=== PATIENT | female | born 1955 | race Two or more races ===

== ENCOUNTER 2024-06-18 18:47 | Emergency (ER) | payer OTHER ==
[2024-06-18 18:58] VITALS: BP 171/83; PULSE 70; RESP 18; TEMP 98.2; BMI 24.0
[2024-06-18] MEDS ORDERED: ACETAMINOPHEN 500 MG TABLET (FP) ONE (20:07)
[2024-06-18] MEDS: ACETAMINOPHEN 500 MG TABLET (FP) PO ONE (20:08)
[2024-06-18] MEDS ORDERED: KETOROLAC TROMETHAMINE 30 MG/1 ML VIAL ONE (21:00)
[2024-06-18] MEDS: KETOROLAC TROMETHAMINE 30 MG/1 ML VIAL IM ONE (21:04)
== END 2024-06-18 21:46 | disposition home or self-care (01) ==
LOC: JERFT 18:47 → JER 18:47 → JERFT 21:46
PROC: 3E0133Z Introduction of Anti-inflammatory into Subcutaneous Tissue, Percutaneous Approach (ICD-10-PCS; principal; 2024-06-18)
DX: S72.432A Displaced fracture of medial condyle of left femur, initial encounter for closed fracture (principal); M25.462 Effusion, left knee; M17.12 Unilateral primary osteoarthritis, left knee; X58.XXXA Exposure to other specified factors, initial encounter
CPT/HCPCS: 73560-TC-LT-FY; 99284-25